=== PATIENT | female | born 2000 ===

== ENCOUNTER 2022-09-01 09:54 | Observation (INO) ==
[2022-09-01 14:43] LABS: Basophils % 0.2 % (0.0-0.8); Eosinophils # 0.2 10*3/uL (0.0-0.87); Eosinophils % 2.7 % (0.00-10.9); Hematocrit 31.1 VOL% (35.7-47.0); Hemoglobin 9.7 GM/DL (12.0-16.0); Immature Granulocytes % 0.5 %; Immature Granulocytes Absolute 0.04 #; Lymphocytes # 1.5 10*3/uL (1.4-4.0); Lymphocytes % 18.4 % (21.3-54.2); Mean Corpuscular HGB Conc 31.2 GM/DL (32-36); Mean Corpuscular Volume 83.8 FL (87-102); Monocytes # 0.6 10*3/uL (0.11-0.8); Monocytes % 6.8 % (1.7-12.7); Neutrophils % 71.4 % (38.7-73.9); Platelet Count 440 T/CUMM (130-400); Red Blood Count 3.71 MC/CUMM (3.8-5.5); Red Cell Distribution Width 18.1 % (9.3-17.3)
[2022-09-01 14:52] LABS: PT Patient Result 10.7 SECS (10.1-12.1); Partial Thromboplastin Time 33.3 SECS (23.7-32.9)
[2022-09-01] MEDS ORDERED: MORPHINE 10 MG/1 ML VIAL IV STA (14:52)
[2022-09-01] MEDS ORDERED: ONDANSETRON 4 MG/2 ML VIAL IV STA ×2 (14:53→15:17)
[2022-09-01] MEDS ORDERED: MORPHINE 2 MG/1 ML SYRINGE ONE (14:55)
[2022-09-01 14:59] LABS: Albumin 2.9 G/DL (3.4-5.0); Calcium 8.7 MG/DL (8.5-10.1); Osmolality,Calculated 279.1 MOS/KG (273-304); Potassium 3.9 MMOL/L (3.5-5.1); Total Protein 6.4 G/DL (6.4-8.2)
[2022-09-01] MEDS ORDERED: MORPHINE 2 MG/1 ML SYRINGE IV STA (15:17)
[2022-09-01 16:13] LABS: Mucus,Urine Occasional /LPF (Occasional); RBC,Urine 5 /HPF (0-4); Squamous Epithelial Cell,Urine Occasional /HPF (0-10)
[2022-09-01 16:16] LABS: Urine Appearance Clear (Clear); Urine Color Yellow (Yellow); Urine pH 6.5 (4.5-8.0)
[2022-09-01 16:17] LABS: Bilirubin,Urine Small mg/dL (Negative); Blood, Urine Trace mg/dL (Negative); Glucose,Urine (UA) Negative (Negative); Ketones,Urine Negative (Negative); Nitrite,Urine Negative (Negative); Protein,Urine Trace mg/dL (Negative); Urine Urobilinogen >= 8.0 eU/dL (<2.0)
[2022-09-01] MEDS ORDERED: BISACODYL 10 MG SUPP RECTAL PRN (16:35)
[2022-09-01] MEDS ORDERED: ACETAMINOPHEN 325 MG TABLET PO PRN (16:35)
[2022-09-01] MEDS ORDERED: MAGNESIUM HYDROXIDE SUSP 30 ML UDCUP PO PRN (16:35)
[2022-09-01] MEDS ORDERED: ONDANSETRON 4 MG/2 ML VIAL IV PRN (16:35)
[2022-09-01] MEDS ORDERED: IBUPROFEN 800 MG TABLET PO PRN (16:35)
[2022-09-01] MEDS ORDERED: MORPHINE 2 MG/1 ML SYRINGE IV PRN (16:38)
[2022-09-01] MEDS: CLINDAMYCIN INJ 900 MG/50 ML PREMIX IV SCH (17:03)
[2022-09-01] MEDS: LACTATED RINGERS 1,000 ML IV SCH (17:19)
[2022-09-01] MEDS: DOCUSATE SODIUM 100 MG CAPSULE PO SCH (20:58)
[2022-09-02] MEDS: CLINDAMYCIN INJ 900 MG/50 ML PREMIX IV SCH ×2 (01:17→08:58)
[2022-09-02] MEDS: LACTATED RINGERS 1,000 ML IV SCH ×2 (01:19→10:16)
[2022-09-02 05:45] LABS: Basophils % 0.2 % (0.0-0.8); Eosinophils # 0.3 10*3/uL (0.0-0.87); Eosinophils % 3.1 % (0.00-10.9); Hematocrit 30.3 VOL% (35.7-47.0); Hemoglobin 9.4 GM/DL (12.0-16.0); Immature Granulocytes % 0.4 %; Immature Granulocytes Absolute 0.03 #; Lymphocytes # 1.6 10*3/uL (1.4-4.0); Lymphocytes % 19.5 % (21.3-54.2); Mean Corpuscular Volume 85.1 FL (87-102); Mean Platelet Volume 9.4 FL (9.6-12.0); Monocytes # 0.5 10*3/uL (0.11-0.8); Monocytes % 6.7 % (1.7-12.7); Neutrophils % 70.1 % (38.7-73.9); Platelet Count 421 T/CUMM (130-400); Red Blood Count 3.56 MC/CUMM (3.8-5.5); White Blood Count 8.09 T/CUMM (4-12)
[2022-09-02 06:06] LABS: Calcium 8.7 MG/DL (8.5-10.1); Osmolality,Calculated 280.1 MOS/KG (273-304); Potassium 3.7 MMOL/L (3.5-5.1)
[2022-09-02] MEDS: DOCUSATE SODIUM 100 MG CAPSULE PO SCH (08:59)
[2022-09-02 11:53] VITALS: BP 125/61
== END 2022-09-02 14:45 | disposition home or self-care (01) ==
LOC: N.ED 09:54 → N.EDINP 09:54 → N.OB 17:39
PROVIDERS: ADMIT Obstetrics & Gynecology; ATTEND Obstetrics & Gynecology